=== PATIENT | male | born 1975 | race Caucasian/White ===

== ENCOUNTER → 2023-01-24 11:43 | Outpatient (BNVA) | payer BC, SELFPAY | PROVIDERS: Visit Provider Neurological Surgery ==

== ENCOUNTER 2023-02-21 12:48 | Inpatient (IN) | payer BC, SELFPAY ==
[2023-02-10 07:26] VITALS: BMI 39.8
[2023-02-21] VITALS (11 sets, daily range): BP systolic 126–148; BP diastolic 58–98; PULSE 82–119; RESP 17–20; TEMP 36.3–37.2; O2SAT 93–97
--- NOTE | ~2023-02-21 | FL_ITS ---
EXAMINATION: XR FLUOROSCOPY WITH IMAGES CLINICAL INFORMATION: Cervical disc replacement COMPARISON: None available. TECHNIQUE: Fluoroscopy Supervised By: Jeronimo. Fluoroscopy Time: 0.6 minutes. Cumulative Dose: 41.8 mGy. DAP: 5.94 Gycm2. Images: 4. FINDINGS: Images demonstrate the patient is intubated. Surgical instruments are present. Disc prostheses superimposed over the lower cervical region. Detail limited FL/FL guidance in OR IMPRESSION: Imaging assistance provided during a fluoroscopic procedure
[2023-02-21] MEDS: methocarbamoL 750 MG TABLET PO (06:46)
[2023-02-21] MEDS: Gabapentin 300 MG CAPSULE PO (06:46)
[2023-02-21] MEDS: Lactated Ringers 1,000 ML 100 ML IVCONT (06:46)
[2023-02-21] MEDS: Scopolamine 1.5 MG PATCH.TD.3 EAR-BEHIND (07:14)
--- NOTE | 2023-02-21 07:29 | HO.ANESPROP2 ---
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 HTN (hypertension) Hyperlipidemia Kidney stone Nonspecific abnormal results of liver function study Obesity Sleep apnea Testosterone deficiency Family History Family history of problems with anesthesia: No Surgical History Surgical History (Updated 02/08/23 @ 10:14 by Glenys Galindo RN) History of uvulopalatopharyngoplasty Hx of tonsillectomy History of Problems with Anesthesia: No Social History Social History Patient Tobacco Use Status: Never used Tobacco Second Hand Smoke Exposure: No Use of substances other than those prescribed or required for medical reasons: No Are you DNR?: No Advance Directives: No Advance Directives Information Provided: No Advance Directives on File: No Meds Allergies Allergy/AdvReac Type Severity Reaction Status Date / Time No Known Allergies Allergy Verified 02/08/23 10:08 Active Medications: Current Medications Lactated Ringer's (Lr) 1,000 mls @ 100 mls/hr IVCONT .Q10H JOANNE Last Admin: 02/21/23 06:46 Dose: 100 mls/hr Scopolamine (Scopolamine 1.5 Mg Patch.Td.3) 1.5 mg EAR-BEHIND ONCE ONE Stop: 02/21/23 07:13 Last Admin: 02/21/23 07:14 Dose: 1.5 mg Home Medications Medication Instructions Recorded Confirmed Last Taken Type alprazolam 0.5 mg tablet 0.5 mg PO TID PRN Panic Attack(S) 02/08/23 02/08/23 02/21/23 History anastrozole 1 mg tablet 1 mg PO 02/08/23 02/14/23 History cholecalciferol (vitamin D3) 125 125 mcg PO DAILY 02/08/23 02/08/23 Unknown History mcg (5,000 unit) capsule clobetasol 0.05 % topical cream 1 appl topical DAILY PRN Dry Skin 02/08/23 02/08/23 Unknown History lisinopril 20 1 tab PO DAILY 06/02/08/23 02/20/23 History mg-hydrochlorothiazide 12.5 mg tablet semaglutide (weight loss) 0.5 0.5 mg subcut QWEEK 02/08/23 02/08/23 Unknown History mg/0.5 mL subcutaneous pen injector sertraline 25 mg tablet 37.5 mg PO DAILY 02/08/23 02/08/23 02/21/23 History testosterone cypionate 200 mg/mL 200 mg IM Q2W 02/08/23 02/08/23 02/07/23 History intramuscular oil Exam Exam Date and Time: February 21, 2023 0729 Height,Weight and Vital Signs: Height 5 ft 11 in Weight 129.3 kg Last Vital Signs Temp 97.4 F 02/21/23 06:40 Pulse 100 02/21/23 06:40 Resp 18 02/21/23 06:40 BP 141/89 H 02/21/23 06:40 Pulse Ox 96 02/21/23 06:40 O2 Del Method Room Air 02/21/23 06:40 Airway Mallampati Class: III TM Dist: >3cm Neck ROM: Limited Assessment and Plan Assessment Anesthesia Assessment: Anesthesia Plan Discussed and Chart Reviewed Final Anesthetic Review Family History of Problems with Anesthesia: No History of Problems with Anesthesia: No NPO: Yes ASA Class: III Final Preanesthetic Review: No Changes in Pt Med Stat, Meds/Allgs Chart Reviewed, Consent Obtained/Reviewed and Anes Risks/Benef Reviewed Patient Risk: Intermediate Procedure Risk: Intermediate Anesthetic Plan Anesthetic Plan: GA Disposition: Standard PACU
--- NOTE | 2023-02-21 12:49 | PM.DS ---
DS: Providers Provider Date of Service: 02/21/23 <ERIN Savage - Last Filed: 08/15/23 12:49> Date of discharge: 02/22/23 <ERIN Savage - Last Filed: 08/15/23 12:49> Primary care physician: Nonstaff Physician <ERIN Savage - Last Filed: 08/15/23 12:49> Admitting clinician: Rubén Decker <ERIN Savage - Last Filed: 08/15/23 12:49> DS: Diagnosis Discharge Diagnosis (1) DDD (degenerative disc disease), cervical: Status: Acute <ERIN Savage - Last Filed: 08/15/23 12:49> DS: Summary Status at Discharge Cognitive/behavioral status at discharge: Neurologically intact. Incision dry <Rubén Decker MD, PhD - Last Filed: 02/22/23 08:56> Time Spent with Patient Time attestation: Total time managing care of this patient today ____ minutes. <ERIN Savage - Last Filed: 08/15/23 12:49> Total time managing care of this patient today __10__ minutes. <Rubén Decker MD, PhD - Last Filed: 02/22/23 08:56> Discharge coordination time: Less than 30 minutes <Rubén Decker MD, PhD - Last Filed: 02/22/23 08:56> Quality: Safe Use of Opioids Does Pt have an Active Cancer Diagnosis on the Problem List?: No <Rubén Decker MD, PhD - Last Filed: 02/22/23 08:56> Quality: Stroke Does the patient have a stroke diagnosis?: No <Rubén Decker MD, PhD - Last Filed: 02/22/23 08:56> Physical Exam Vital Signs: Vital Signs: Last Vital Signs Temp 99.0 F 02/21/23 12:10 Pulse 103 H 02/21/23 12:25 Resp 20 02/21/23 12:25 BP 132/63 02/21/23 12:25 Pulse Ox 96 02/21/23 12:25 O2 Del Method Simple Mask 02/21/23 12:25 O2 Flow Rate 6 02/21/23 12:25 BMI result Body Mass Index 39.8 <ERIN Savage - Last Filed: 08/15/23 12:49> Discharge Plan Discharge Anticipated Discharge Date/Time: 02/22/23 10:50 <ERIN Savage - Last Filed: 08/15/23 12:49> Patient Disposition: Home, Self-Care <ERIN Savage - Last Filed: 08/15/23 12:49> Discharge Diagnosis: cervical degenerative disk disease <ERIN Savage - Last Filed: 08/15/23 12:49> cervical degenerative disk disease <Rubén Decker MD, PhD - Last Filed: 02/22/23 08:56> Referrals: Physician,Nonstaff [Primary Care Provider] - 1 Week <ERIN Savage - Last Filed: 08/15/23 12:49> Discharge Medications: New docusate sodium [Colace] 100 mg capsule 100 mg PO BID Qty: 20 0RF oxycodone 5 mg tablet 5 mg PO Q4H PRN (Reason: pain) Qty: 30 0RF Rx Instructions: Partial Fill upon patient request. cyclobenzaprine 10 mg tablet 10 mg PO TID PRN (Reason: muscle spasm) Qty: 20 0RF Continued alprazolam 0.5 mg Tablet 0.5 mg PO TID PRN (Reason: Panic Attack(S)) anastrozole 1 mg tablet 1 mg PO lisinopril-hydrochlorothiazide 20-12.5 mg tablet 1 tab PO DAILY clobetasol 0.05 % Cream 1 appl TOPICAL DAILY PRN (Reason: Dry Skin) cholecalciferol (vitamin D3) 125 mcg (5,000 unit) Capsule 125 mcg PO DAILY sertraline 25 mg tablet 37.5 mg PO DAILY semaglutide (weight loss) 0.5 mg/0.5 mL Pen Injector 0.5 mg SUBCUT QWEEK Rx Instructions: administer weeks 5 through 8 of therapy testosterone cypionate 200 mg/mL oil 200 mg IM Q2W <ERIN Savage - Last Filed: 08/15/23 12:49> Discharge Orders: Discharge Order (Routine); Ordered 02/22/23 Ordered By: Rubén Decker <ERIN Savage - Last Filed: 08/15/23 12:49> Diet: Advance to usual diet <ERIN Savage - Last Filed: 08/15/23 12:49> Advance to usual diet <Rubén Decker MD, PhD - Last Filed: 02/22/23 08:56> Activity on Discharge: As tolerated <ERIN Savage - Last Filed: 08/15/23 12:49> As tolerated <Rubén Decker MD, PhD - Last Filed: 02/22/23 08:56> Stand Alone Forms: Patient Portal Discharge page <ERIN Savage - Last Filed: 08/15/23 12:49> Activity Restrictions/Additional Instructions: After your spinal surgery we ask you to observe the following restrictions/guidelines: Activity: It is normal to feel some discomfort as you increase your activity, but that will improve with time. We ask you avoid heavy lifting or acitivities that cause pain. As a general rule, 8lbs is a safe limit for lifting right after surgery. Walk as much as you feel comfortable but not to exhaustion. You will feel extra tired the first few days after surgery. Stay well hydrated. It is OK to walk up and down stairs You may return to driving when you are off narcotics (such as vicodin, oxycodone, dilaudid, etc), and you are back to normal functional capacity. If you have any concerns please check with office before driving. Return to work is specific to each patient and each surgery, so please speak with your doctor/PA at first follow up. Please bring paperwork such as FMLA at that time if you need it filled out. Medications: We will give you a short supply of narcotics after surgery (usually one weeks worth). If you need more please call the office but do not use more than prescribed. You will need to give our office 48 hours notice if you need narcotics refilled and we do not fill narcotics on weekends or evenings. If you are on a narcotic, it is a good idea to take a stool softener such as colace or senna to avoid constipation If you take blood thinner such as aspirin, Plavix, Coumadin, Effient, Eliquis etc for conditions such as Afib, DVT, Pulmonary embolus, coronary disease, stents etc please speak with your surgeon about specific details as to when you can resume these medications. You can resume NSAIDs on post op day 1 (eg: Motrin, Naproxen, etc). Follow up: Please call the office, , after surgery to arrange a 3 week follow up for wound check. Wound Care: You may remove your dressing on the first day after surgery. You may leave open to air. Please do not remove the steri strips underneath. they will fall off on their own in one week. IT IS NORMAL FOR THE WOUND TO OOZE OR BE BLOODY FOR A FEW DAYS AFTER SURGERY. IF THIS HAPPENS JUST PLACE NEW DRESSING OVER IT TO AVOID STAINING CLOTHES. You may shower on post op day # 1 We ask that you do not let the water soak the wound. If it does get wet, just towel dry lightly. Please do not scrub your incision or place any type of chemical/ointment on the wound. No tub baths, pools or jacuzzis for one month. If you have any leaking or redness from your wound, or fevers, please call office <ERIN Savage - Last Filed: 08/15/23 12:49> Care Plan Goals: Discharge home <ERIN Savage - Last Filed: 08/15/23 12:49> Health Concerns: none <ERIN Savage - Last Filed: 08/15/23 12:49> Plan of Treatment: recover from surgery <ERIN Savage - Last Filed: 08/15/23 12:49> Assessment: stable <ERIN Savage Last Filed: 08/15/23 12:49> Discharge Date/Time: 02/22/23 13:24 <ERIN Savage Last Filed: 08/15/23 12:49>
--- NOTE | 2023-02-21 12:57 | PHA.MEDREC ---
Pharmacy Consult ? Medication Reconciliation Pharmacy has completed the medication reconciliation. Reviewed med rec done by nursing
--- NOTE | 2023-02-21 14:38 | P.OP_ITS ---
Operative Note Operative Note Date of Service: 02/21/23 Narrative: Preoperative diagnosis: Bilateral cervical radiculopathy and spinal cord compression Procedure: Total disc arthroplasty C5-C6 and C6-C7 Description of procedure: This 47-year-old male is suffering from bilateral cervical radiculopathy. An MRI shows bilateral C6 foraminal stenosis and severe spinal cord compression at the C6-7 level. He was offered a total disc arthroplasty C5-C6 and C6-C7. The procedure and complication explained. he was brought to the operating or endotracheally intubated. He was put in the supine position with slight extension of the neck. Patient has a fairly short and thick neck which will interfere with the difficulty of the procedure. Preoperative postop follow-up item marked. The midcervical incision was made followed by opening of the platysma. The prevertebral fascia was reached following the natural planes with the carotid artery laterally and esophagus medially. Prevertebral fascia was opened and a localizing needle was inserted in what we thought to be the C5-6 disc space. Several imaging was required to make sure we were at the correct level due to patient habitus. The longus coli muscles were released bilaterally and 65 mm retractor blades were inserted. A C5-6 diskectomy was down towards the posterior annulus. The microscope was brought in. The posterior annulus was resected and the posterior longitudinal ligament was opened sharply. A 2. Kerrison Segal to further resect and the posterior longitudinal ligament. A bilateral foraminotomy was done to decompress the C6 nerve roots. A 15 x 15 x 5 mm Mobic C artificial disc was implanted at the C5-C6 level. Again it was very hard to distinguish the posterior wall of the vertebral bodies with x-ray. But in the end I was confident that the implant was at the correct position. Then turned the attention to the C6-7 disc space. Again a diskectomy was done at worse posterior annulus. I opened up the posterior longitudinal ligament on the left side and then worked to the contralateral side where significant compression of the spinal cord was encountered caused by a calcified disc herniation and hypertrophied posterior longitudinal ligament. This mass was carefully resected with a 2. Kerrison and a curved currette to decompress the spinal cord. At this level a 15 x 17 x 5 mm Mobic C artificial disc was inserted. Final x-rays showed a satisfactory position of the implants in the midline. The physician school office assistant to go over the procedure. Hemostasis was down. The retractors removed. Incision was closed in 2 layers. Steri-Strips were used to approximate the surgeon. An Op site was used to cover the incision. All sponge and needle counts were correct. The patient was extubated and transported in stable condition to recovery. Surgeon: Rubén Decker MD Commercial Leasing Agent: Diego Esposito Estimated blood loss: 40 cc Anesthesia: General Disposition: Admit to floor for observation
[2023-02-21] MEDS: 0.9 % Sodium Chloride 1,000 ML 75 ML IVCONT ×2 (14:40→23:26)
[2023-02-21 14:57] LABS: HIV AB/AG Nonreactive (Nonreactive); HIV Num 1 0.47 S/CO (0.00-0.99)
[2023-02-21] MEDS: Acetaminophen 1,000 MG/100 ML PIGGYBACK 400 MG IV ×2 (16:29→23:04)
[2023-02-21] MEDS: Throat Lozenge, Medicated LOZENGE 1 LOZENGE MUCOUS MEM ×2 (19:51→23:01)
[2023-02-21] MEDS: traMADoL HCL 50 MG TABLET PO (19:51)
[2023-02-21] MEDS: Cyclobenzaprine HCl 5 MG TABLET PO (23:02)
[2023-02-21] MEDS: HYDROmorphone HCl 1 MG/ML SYRINGE IVPUSH (23:03)
[2023-02-22 03:20] LABS: HBS Num1 63.57 mIU/mL (0-7.99); HBc Num1 0.16 S/CO (0.00-0.79); HBsAGNum1 0.32 S/CO (0.00-0.99); Hepatitis B Core Antibody Nonreactive (Nonreactive); Hepatitis B Surface Antigen Negative (Negative); ~HepC Num1 0.15 S/CO (0.00-0.79); ~Hepatitis B Surface Antibody REACTIVE (Nonreactive)
[2023-02-22 04:00] VITALS: BP 122/66; PULSE 85; RESP 20; TEMP 36.4; O2SAT 96
[2023-02-22] MEDS: HYDROmorphone HCl 1 MG/ML SYRINGE IVPUSH ×2 (04:17→10:14)
[2023-02-22] MEDS: Acetaminophen 1,000 MG/100 ML PIGGYBACK 400 MG IV (05:14)
[2023-02-22] MEDS: Throat Lozenge, Medicated LOZENGE 1 LOZENGE MUCOUS MEM ×4 (05:14→12:26)
[2023-02-22 07:00] VITALS: BP 140/84; PULSE 67; RESP 18; TEMP 36.6; O2SAT 96
[2023-02-22 07:19] LABS: Hepatitis C Ab Exposure Source NonReactive (Nonreactive)
--- NOTE | 2023-02-22 08:09 | HO.POSTANES ---
Post Anesthesia Evaluation Post Anesthesia Evaluation Date of Service: 02/22/23 Vital Signs: Vital Signs Temp Pulse Resp BP Pulse Ox O2 Del Method 02/22/23 07:00 98 F 67 18 140/84 H 96 CPAP 02/22/23 04:00 97.5 F 85 20 122/66 96 Room Air 02/21/23 22:00 98.7 F 82 20 148/78 H 97 Room Air Anesthesia: General Endotracheal-GETA Mental Status: Awake Pain Control: Satisfactory Nausea/Vomiting: None Hydration: Adequate Anesthesia-Related Issues: No Anes. Related Issues
[2023-02-22] MEDS: hydroCHLOROthiazide 12.5 MG TABLET PO (08:21)
[2023-02-22] MEDS: Sertraline HCL 25 MG TABLET 37.5 MG PO (08:21)
[2023-02-22] MEDS: lisinopriL 20 MG TABLET PO (08:21)
[2023-02-22] MEDS: Cholecalciferol (Vitamin D3) 25 MCG TABLET 125 MCG PO (08:23)
--- NOTE | 2023-02-22 09:46 | MHC.CM.PN ---
pt dcd home no skilled services ordered by
[2023-02-22] MEDS: Cyclobenzaprine HCl 5 MG TABLET PO (10:13)
== END 2023-02-22 13:24 | disposition home or self-care (01) | DRG 310 ==
LOC: HO.SSSA 12:55 → HO.S3 13:19
PROVIDERS: Neurological Surgery; Admitting Provider Physician Assistant; Visit Provider Physician Assistant
PROC: 0RR30JZ Replacement of Cervical Vertebral Disc with Synthetic Substitute, Open Approach (ICD-10-PCS; CPT 22856; principal; 2023-02-21 07:30)
DX: M48.02 Spinal stenosis, cervical region (principal); K76.0 Fatty (change of) liver, not elsewhere classified; M54.12 Radiculopathy, cervical region; Z79.899 Other long term (current) drug therapy
CPT/HCPCS: 22856; 22858; 36415; 86803; C1776; J0131; J0690; J1100; J1170; J2250; J2370; J2371; J2405; J3010

== ENCOUNTER → 2023-02-21 12:48 | Outpatient (BNV) | payer BC, SELFPAY | PROVIDERS: Admitting Provider Physician Assistant; Visit Provider Neurological Surgery | DX: M50.30 Other cervical disc degeneration, unspecified cervical region (principal) | CPT/HCPCS: 22856; 22858; 99499 ==